=== PATIENT | female | born 1980 | race Caucasian/White ===

== ENCOUNTER 2017-07-03 17:40 | Inpatient (IN) | payer OTHER ==
[2017-07-03 19:00] LABS: NEG OBC UR NEG; POS OBC UR POS; U PREG PATIENT NEGATIVE (NEG)
[2017-07-03] MEDS: HYDROmorphone 2 MG/ML VIAL IV (19:49)
[2017-07-03] MEDS: ONDANSETRON PF 4 MG/2 ML VIAL. IV (19:49)
[2017-07-03] MEDS: IV DEXTROSE 5 %-0.45 % NACL 1,000 ML IV (19:54)
[2017-07-03] MEDS: ENOXAPARIN 40 MG/0.4 ML SYRINGE. SQ (20:54)
[2017-07-03] MEDS: fentaNYL PF VIAL 100 MCG/2 ML VIAL IV (22:21)
[2017-07-04] MEDS: HYDROmorphone 2 MG/ML VIAL IV ×5 (00:35→19:54)
[2017-07-04] MEDS: fentaNYL PF VIAL 100 MCG/2 ML VIAL IV ×4 (04:55→21:55)
[2017-07-04 05:51] LABS: BASO % 0 % (0-3); EOS % 0 % (0-3); HEMATOCRIT 35.3 % (36.0-47.0); HEMOGLOBIN 11.6 g/dL (12.0-15.5); LYMPH # 1.5 x10^3/uL (1.0-4.8); LYMPH % 10 % (24-48); MEAN CORPUSCULAR HEMOGLOBIN 26 pg (25-35); MEAN CORPUSCULAR HGB CONC 33 g/dL (31-37); MEAN CORPUSCULAR VOLUME 79 fL (79-100); MONO % 6 % (0-9); NEUT % 84 % (31-73); PLATELET COUNT 234 x10^3/uL (140-400); RED BLOOD COUNT 4.48 x10^6/uL (3.50-5.40); RED CELL DISTRIBUTION WIDTH 14.2 % (11.5-14.5); WHITE BLOOD COUNT 15.5 x10^3/uL (4.0-11.0)
[2017-07-04 06:13] LABS: ADD MAN DIFF? YES
[2017-07-04 06:31] LABS: ALBUMIN 2.6 g/dL (3.4-5.0); ALBUMIN/GLOBULIN RATIO 0.6 (1.0-1.7); ALK PHOS 83 U/L (46-116); ALT (SGPT) 9 U/L (14-59); ANION GAP 9 (6-14); AST (SGOT) 11 U/L (15-37); BLOOD UREA NITROGEN 6 mg/dL (7-20); BUN/CREATININE RATIO 8 (6-20); CALCIUM 8.8 mg/dL (8.5-10.1); CARBON DIOXIDE 26 mmol/L (21-32); CHLORIDE 101 mmol/L (98-107); CREATININE 0.8 mg/dL (0.6-1.0); GFR 80.7; GLUCOSE 122 mg/dL (70-99); LIPASE 287 U/L (73-393); POTASSIUM 3.8 mmol/L (3.5-5.1); SODIUM 136 mmol/L (136-145); TOTAL PROTEIN 7.2 g/dL (6.4-8.2)
[2017-07-04] MEDS: IV DEXTROSE 5 %-0.45 % NACL 1,000 ML IV ×2 (08:40→21:55)
[2017-07-04] MEDS ORDERED: CONTRAST GIVEN MC (10:15)
[2017-07-04] MEDS: IOHEXOL 300 MG/ML 100ML VIAL. IV (10:44)
[2017-07-04 10:48] LABS: % BANDS 6 % (0-9); % LYMPHS 8 % (24-48); % MONOS 3 % (0-10); % SEGS 83 % (35-66); PLT ESTIMATE ADEQUATE (ADEQUATE)
[2017-07-04] MEDS: ONDANSETRON PF 4 MG/2 ML VIAL. IV ×2 (10:59→18:09)
[2017-07-04] MEDS: PIPERACILLIN/TAZOBACTAM 3.375 GM in IV NORMAL SALINE 50ML 50 ML IV ×3 (12:29→22:56)
[2017-07-04] MEDS: ACETAMINOPHEN 325 MG TABLET. PO (12:29)
[2017-07-04 14:09] LABS: BILIRUBIN,URINE NEGATIVE (NEG); CLARITY,URINE CLEAR; COLOR,URINE AMBER; GLUCOSE,URINE NEGATIVE (NEG); NITRITE,URINE NEGATIVE (NEG); PH,URINE 6.5; PROTEIN,URINE NEGATIVE (NEG-TRACE); UROBILINOGEN,URINE 0.2 mg/dL (0.2 mg/dL)
[2017-07-04 15:28] LABS: BACTERIA,URINE FEW /HPF (0-FEW); SQUAMOUS EPITHELIAL CELL,UR MOD /LPF; WBC,URINE 0 /HPF (0-4)
[2017-07-04] MEDS: LACTOBACILLUS RHAMNOSUS GG 1 CAPSULE. PO (19:53)
[2017-07-04] MEDS: ENOXAPARIN 40 MG/0.4 ML SYRINGE. SQ (19:53)
[2017-07-05] MEDS: HYDROmorphone 2 MG/ML VIAL IV ×4 (00:03→21:01)
[2017-07-05] MEDS: TEMAZEPAM 15 MG CAPSULE PO (00:03)
[2017-07-05] MEDS: PIPERACILLIN/TAZOBACTAM 3.375 GM in IV NORMAL SALINE 50ML 50 ML IV ×2 (04:46→12:29)
[2017-07-05 06:00] LABS: HEMATOCRIT 34.9 % (36.0-47.0); HEMOGLOBIN 11.5 g/dL (12.0-15.5); MEAN CORPUSCULAR HEMOGLOBIN 26 pg (25-35); MEAN CORPUSCULAR HGB CONC 33 g/dL (31-37); MEAN CORPUSCULAR VOLUME 79 fL (79-100); PLATELET COUNT 262 x10^3/uL (140-400); RED BLOOD COUNT 4.41 x10^6/uL (3.50-5.40); RED CELL DISTRIBUTION WIDTH 14.5 % (11.5-14.5); WHITE BLOOD COUNT 13.2 x10^3/uL (4.0-11.0)
[2017-07-05 06:32] LABS: ANION GAP 8 (6-14); BLOOD UREA NITROGEN 5 mg/dL (7-20); CALCIUM 8.7 mg/dL (8.5-10.1); CARBON DIOXIDE 28 mmol/L (21-32); CHLORIDE 103 mmol/L (98-107); CREATININE 0.9 mg/dL (0.6-1.0); GFR 70.5; GLUCOSE 102 mg/dL (70-99); LIPASE 124 U/L (73-393); POTASSIUM 3.8 mmol/L (3.5-5.1); SODIUM 139 mmol/L (136-145)
[2017-07-05] MEDS: fentaNYL PF VIAL 100 MCG/2 ML VIAL IV ×3 (09:04→14:28)
[2017-07-05] MEDS: LACTOBACILLUS RHAMNOSUS GG 1 CAPSULE. PO ×2 (09:07→21:00)
[2017-07-05] MEDS: HYDROcodone/APAP 5/325MG 1 TAB TABLET PO ×2 (10:34→18:46)
[2017-07-05] MEDS: IV DEXTROSE 5 %-0.45 % NACL 1,000 ML IV (10:34)
[2017-07-05] MEDS: PANTOPRAZOLE 40 MG TABLET.DR. PO (10:34)
[2017-07-05 12:23] LABS: CA 19-9 7 U/mL (0-35)
[2017-07-05] MEDS: PIPERACILLIN/TAZOBACTAM 3.375 GM in IV NORMAL SALINE 100ML 100 ML IV (17:19)
[2017-07-05] MEDS: ONDANSETRON PF 4 MG/2 ML VIAL. IV (17:19)
[2017-07-05] MEDS: ENOXAPARIN 40 MG/0.4 ML SYRINGE. SQ (21:00)
[2017-07-06] MEDS: PIPERACILLIN/TAZOBACTAM 3.375 GM in IV NORMAL SALINE 100ML 100 ML IV ×3 (00:22→11:02)
[2017-07-06] MEDS: IV DEXTROSE 5 %-0.45 % NACL 1,000 ML IV ×2 (00:23→13:40)
[2017-07-06] MEDS: HYDROmorphone 2 MG/ML VIAL IV ×3 (01:38→11:03)
[2017-07-06 02:14] LABS: IGG1 654 mg/dL (248-810); IGG2 267 mg/dL (130-555); IGG3 135 mg/dL (15-102); IGG4 28 mg/dL (2-96); TOTAL IGG 1055 mg/dL (700-1600)
[2017-07-06] MEDS: PANTOPRAZOLE 40 MG TABLET.DR. PO (05:42)
[2017-07-06 06:35] LABS: HEMATOCRIT 33.5 % (36.0-47.0); HEMOGLOBIN 10.8 g/dL (12.0-15.5); MEAN CORPUSCULAR HEMOGLOBIN 26 pg (25-35); MEAN CORPUSCULAR HGB CONC 32 g/dL (31-37); MEAN CORPUSCULAR VOLUME 80 fL (79-100); PLATELET COUNT 251 x10^3/uL (140-400); RED BLOOD COUNT 4.17 x10^6/uL (3.50-5.40)
[2017-07-06 07:09] LABS: ALBUMIN 2.2 g/dL (3.4-5.0); ALBUMIN/GLOBULIN RATIO 0.5 (1.0-1.7); ALK PHOS 93 U/L (46-116); ALT (SGPT) 17 U/L (14-59); ANION GAP 8 (6-14); AST (SGOT) 14 U/L (15-37); BLOOD UREA NITROGEN 7 mg/dL (7-20); BUN/CREATININE RATIO 9 (6-20); CALCIUM 8.6 mg/dL (8.5-10.1); CARBON DIOXIDE 29 mmol/L (21-32); CHLORIDE 103 mmol/L (98-107); CREATININE 0.8 mg/dL (0.6-1.0); GFR 80.7; GLUCOSE 102 mg/dL (70-99); POTASSIUM 3.8 mmol/L (3.5-5.1); SODIUM 140 mmol/L (136-145); TOTAL BILIRUBIN 0.8 mg/dL (0.2-1.0); TOTAL PROTEIN 6.6 g/dL (6.4-8.2)
[2017-07-06] MEDS ORDERED: MIDAZOLAM HCL/PF 2 MG/2 ML VIAL. IV (09:00)
[2017-07-06] MEDS ORDERED: LIDOCAINE 1% PF 2 ML VIAL. ID (09:00)
[2017-07-06] MEDS ORDERED: fentaNYL PF VIAL 100 MCG/2 ML VIAL IV ×2 (09:00)
[2017-07-06] MEDS: IV RINGERS,LACTATED 1000ML 1,000 ML IV ×2 (09:36→11:02)
[2017-07-06] MEDS ORDERED: PROPOFOL 20 ML IV (09:44)
[2017-07-06] MEDS: LACTOBACILLUS RHAMNOSUS GG 1 CAPSULE. PO (11:01)
[2017-07-06] MEDS: HYDROcodone/APAP 5/325MG 1 TAB TABLET PO (14:22)
== END 2017-07-06 15:13 | disposition home or self-care (01) | DRG 438 ==
LOC: 5 NORTH 17:40
PROC: 0DB68ZX Excision of Stomach, Via Natural or Artificial Opening Endoscopic, Diagnostic (ICD-10-PCS; principal; 2017-07-06 09:48)
DX: K85.90 Acute pancreatitis without necrosis or infection, unspecified (principal); E43 Unspecified severe protein-calorie malnutrition; K21.0 Gastro-esophageal reflux disease with esophagitis; K86.1 Other chronic pancreatitis; Z86.19 Personal history of other infectious and parasitic diseases; Z88.0 Allergy status to penicillin; Z68.36 Body mass index [BMI] 36.0-36.9, adult; Z98.891 History of uterine scar from previous surgery; Z88.1 Allergy status to other antibiotic agents
CPT/HCPCS: 36415; 74177; 74181; 80048; 80053; 81001; 81025; 82787; 83690; 85007; 85025; 85027; 86301; 87040; J1170; J1650; J2405; J2543; J2704; J3010; J7120; Q9967

== ENCOUNTER → 2017-08-03 | Outpatient (CLI) | payer OTHER | END | disposition home or self-care (01) | LOC: MAMMO 12:34 | DX: N63.20 Unspecified lump in the left breast, unspecified quadrant (principal); Z80.3 Family history of malignant neoplasm of breast | CPT/HCPCS: 76641; 77066 ==